=== PATIENT | female | born 1970 | race Caucasian/White ===

== ENCOUNTER 2016-11-23 11:14 | Emergency (ER) | payer MEDICAID, OTHER ==
[~2016-11-23] VITALS: Wt 62.0 kg
[~2016-11-23 11:14] MED LIST: DIVA500T15 PO; DIVA500T7 PO; ZIPR60CA6 PO
[2016-11-23] MEDS ORDERED: traMADol 50 MG TAB PO ONE (12:30)
--- NOTE | 2016-11-23 12:36 | ERD ---
ER Documentation Chief Complaint Date/Time DATE: 11/23/16 TIME: 12:32 Chief Complaint left lower back pain radiating to left leg.no trauma. ambulatory HPI This 46-year-old female who presents to the emergency department today complaining of left-sided back and hip pain that radiates down into front and back of her left leg. Patient denies any trauma. She states that she has tried Tylenol and ibuprofen with no improvement in symptoms. Patient states that she works at [employer]. Denies any dysuria. Denies any fevers or chills, loss of bowel or bladder control. ROS All systems reviewed and are negative except as per history of present illness. Medications Home Meds Active Scripts Prednisone* (Prednisone*) 20 Mg Tab, 40 MG PO DAILY for 4 Days, TAB Prov:SHAKIR ROUSE PA-C 11/23/16 Naproxen* (Naprosyn*) 500 Mg Tablet, 500 MG PO BID Y for PAIN AND/OR INFLAMMATION, #30 TAB Prov:SHAKIR ROUSE PA-C 11/23/16 Tramadol HCl (Tramadol HCl) 50 Mg Tablet, 50 MG PO Q4 Y for PAIN, #20 TAB Prov:SHAKIR ROUSE PA-C 11/23/16 Reported Medications Ziprasidone* (Geodon*) 60 Mg Capsule, 60 MG PO PM, CAP 09/10/14 Divalproex Sodium* (Depakote ER*) 500 Mg Tabsr, 500 MG PO BID, TAB.SA 09/10/14 Divalproex Sodium* (Divalproex ER*) 500 Mg Tab.er.24h, 500 MG PO DAILY, TAB.SA 09/10/14 Allergies Allergies: Coded Allergies: morphine (Unverified Allergy, Unknown, VOMITTING, 09/10/14) PMhx/Soc Medical and Surgical Hx: pt denies Medical Hx, pt denies Surgical Hx History of Surgery: No Anesthesia Reaction: No Hx Neurological Disorder: No Hx Respiratory Disorders: No Hx Cardiac Disorders: No Hx Psychiatric Problems: No Hx Miscellaneous Medical Probl: No Hx Alcohol Use: No Hx Substance Use: No Hx Tobacco Use: No Smoking Status: Never smoker Physical Exam Vitals Vital Signs Date Time Temp Pulse Resp B/P Pulse Ox O2 Delivery O2 Flow Rate FiO2 11/23/16 11:32 98.7 77 18 160/85 98 Physical Exam Const: No acute distress, pleasant Head: Atraumatic Eyes: Normal Conjunctiva ENT: Normal External Ears, Nose and Mouth. Neck: Full range of motion..~ No meningismus. Resp: Clear to auscultation bilaterally Cardio: Regular rate and rhythm, no murmurs Abd: Soft, non tender, non distended. Normal bowel sounds Skin: No petechiae or rashes Back: No midline tenderness. Left-sided paraspinal tenderness. Full active range of motion. Pain with positive straight leg raise and left leg. Pulses 2+. Distal neurovascularly intact. Ext: No cyanosis, or edema Neur: Awake and alert Psych: Normal Mood and Affect Results 24 hrs Current Medications Medications (Trade) Dose Ordered Sig/Raul Route PRN Reason Start Time Stop Time Status Last Admin Dose Admin Tramadol HCl (Ultram) 50 mg ONCE ONCE PO 11/23/16 12:30 11/23/16 12:31 11/23/16 12:19 Patient: CELINE SHAIKH : 1970 Age: 46 Sex: F MR #: [id number] DOS: 11/23/16 0000 Ordering MD: SHAKIR ROUSE PA-C Location: [facility] Room/Bed: PROCEDURE: XR left hip. CLINICAL INDICATION: Hip pain TECHNIQUE: Two views available for review. COMPARISON: None available FINDINGS: The osseous structures are normal in mineralization, architecture and alignment. No fractures are identified. No osseous lesions are identified. The joints are unremarkable. The soft tissues are unremarkable. IMPRESSION: Unremarkable examination RPTAT: HGDB .Zack Oneal MD, MD Date Time Electronically viewed and signed by .Zack Oneal MD, on 11/23/2016 13:37 .B/ CC: SHAKIR ROUSE PA-C DIAGNOSTIC IMAGING REPORT Patient: CELINE SHAIKH : 1970 Age: 46 Sex: F [id number] DOS: 11/23/16 0000 Ordering MD: SHAKIR ROUSE PA-C Location: [facility] Room/Bed: PROCEDURE: XR Lumbar Spine. CLINICAL INDICATION: Low back pain. TECHNIQUE: 3 views of the lumbar spine are available for review COMPARISON: None available FINDINGS: Cholecystectomy. Single surgical clip adjacent to the left L2 transverse process. There is mild lumbar spondylosis. The vertebral bodies are otherwise normal in mineralization, architecture and alignment. No fractures or osseous lesions are identified. There is no evidence of subluxation. The disk spaces are unremarkable. The facet joints are unremarkable. Soft tissues are unremarkable. IMPRESSION: Mild lumbar spondylosis RPTAT: HGDB .Zack Oneal MD, MD Date Time Electronically viewed and signed by .Zack Oneal MD, MD on 11/23/2016 13:38 .B/ CC: SHAKIR ROUSE PA-C Procedures/MDM This is a 46-year-old female who presents to emergency department today complaining of left-sided back, hip pain radiates down into her leg. Patient did not have any trauma however she has had symptoms for the past 2 weeks and has not had nearly resolved and symptoms with [id number] medications of ibuprofen and Tylenol. Given this I did obtain imaging Per the radiology report images of the lumbar spine and left hip. Images of the left hip are unremarkable. There is no acute fracture dislocation. Joint spaces unremarkable. Soft tissue is unremarkable. Images of the lumbar spine show mild lumbar spondylosis. Vertebral bodies are otherwise normal sensation. There is no evidence of subluxation. Disc spaces are unremarkable. Facet joints are unremarkable. Soft tissue is unremarkable. Patient's symptoms at this time is consistent with sciatica. She is afebrile and otherwise well appearing. She has no loss of bowel or by control of low suspicion for abscess or cauda equina. Patient declined a Toradol injection here in the emergency department. She was given tramadol instead pain improved. Patient will be given a prescription for tramadol, Naprosyn short course of prednisone for home At this time the patient is stable for discharge and outpatient management. Patient should follow up with their PCP in the next 1-2 days. She was given a list of community resources. They may return to the emergency department sooner for any persistent or worsening of symptoms. Patient understood and agreed with the plan. Departure Diagnosis: Primary Impression: Sciatica Laterality: left Qualified Code: M54.32 - Sciatica of left side Condition: Fair SHAKIR ROUSE PA-C Nov 23, 2016 12:36
--- NOTE | 2016-11-23 13:37 | RADRPT ---
PROCEDURE: XR left hip. CLINICAL INDICATION: Hip pain TECHNIQUE: Two views available for review. COMPARISON: None available FINDINGS: The osseous structures are normal in mineralization, architecture and alignment. No fractures are i dentified. No osseous lesions are identified. The joints are unremarkable. The soft tissues are u nremarkable. IMPRESSION: Unremarkable examination RPTAT: HGDB .Zack Oneal MD, MD Date Time Electronically viewed and signed by .Zack Oneal MD, on 11/23/2016 13:37 .B/
--- NOTE | 2016-11-23 13:38 | RADRPT ---
PROCEDURE: XR Lumbar Spine. CLINICAL INDICATION: Low back pain. TECHNIQUE: 3 views of the lumbar spine are available for review COMPARISON: None available FINDINGS: Cholecystectomy. Single surgical clip adjacent to the left L2 transverse process. There is mild lumbar spondylosis. The vertebral bodies are otherwise normal in mineralization, archi tecture and alignment. No fractures or osseous lesions are identified. There is no evidence of sub luxation. The disk spaces are unremarkable. The facet joints are unremarkable. Soft tissues are unr emarkable. IMPRESSION: Mild lumbar spondylosis RPTAT: HGDB .Zack Oneal MD, Date Time Electronically viewed and signed by .Zack Oneal MD, on 11/23/2016 13:38 .B/
[2016-11-23] MEDS ORDERED: NAPR-260 PO (13:45)
[2016-11-23] MEDS ORDERED: TRAM50TA2 PO (13:45)
[2016-11-23] MEDS ORDERED: PRED20TA PO (13:46)
== END 2016-11-23 13:51 | disposition home or self-care (01) ==
LOC: FTE 11:14
DX: M54.42 Lumbago with sciatica, left side (principal)
CPT/HCPCS: 72100; 73510; Z7502; Z7610

== ENCOUNTER 2016-12-27 17:58 | Emergency (ER) | payer SELFPAY ==
[~2016-12-27] VITALS: Wt 66.5 kg
[~2016-12-27 17:58] MED LIST changes: +NAPR-260 PO; +PRED20TA PO; +TRAM50TA2 PO
== END 2016-12-28 | disposition left against medical advice (07) ==
LOC: E/R 17:58
DX: Z53.21 Procedure and treatment not carried out due to patient leaving prior to being seen by health care provider (principal)

== ENCOUNTER 2017-02-16 04:26 | Emergency (ER) | payer OTHER ==
[~2017-02-16] VITALS: Wt 69.5 kg
--- NOTE | 2017-02-16 04:49 | ERD ---
ER Documentation Chief Complaint Date/Time DATE: 02/16/17 TIME: 04:47 Chief Complaint back pain x2 years HPI Patient is a 46-year-old female who presents with gradual onset, constant, moderate, dull diffuse chest and back pain for 2 years. Patient denies shortness of breath, dysuria, fever, cough. Denies pleuritic pain. Patient states that she has been taking ibuprofen 800 mg without relief. Patient has not seen a PMD and states she does not have one. ROS All systems reviewed and are negative except as per history of present illness. Medications Home Meds Active Scripts Cephalexin* (Keflex*) 500 Mg Capsule, 500 MG PO QID for 5 Days, CAP Prov:KENNY ROBERSON MD 02/16/17 Cyclobenzaprine Hcl* (Cyclobenzaprine Hcl*) 10 Mg Tablet, 10 MG PO TID Y for PAIN, #21 TAB Prov:KENNY ROBERSON MD 02/16/17 Prednisone* (Prednisone*) 20 Mg Tab, 40 MG PO DAILY for 4 Days, TAB Prov:SHAKIR ROUSE PA-C 11/23/16 Naproxen* (Naprosyn*) 500 Mg Tablet, 500 MG PO BID Y for PAIN AND/OR INFLAMMATION, #30 TAB Prov:SHAKIR ROUSE PA-C 11/23/16 Tramadol HCl (Tramadol HCl) 50 Mg Tablet, 50 MG PO Q4 Y for PAIN, #20 TAB Prov:SHAKIR ROUSE PA-C 11/23/16 Reported Medications Ziprasidone* (Geodon*) 60 Mg Capsule, 60 MG PO PM, CAP 09/10/14 Divalproex Sodium* (Depakote ER*) 500 Mg Tabsr, 500 MG PO BID, TAB.SA 09/10/14 Divalproex Sodium* (Divalproex ER*) 500 Mg Tab.er.24h, 500 MG PO DAILY, TAB.SA 09/10/14 Allergies Allergies: Coded Allergies: morphine (Unverified Allergy, Unknown, VOMITTING, 09/10/14) PMhx/Soc Past medical history: Bipolar disorder Past surgical history: Cholecystectomy Social history: Denies tobacco or alcohol History of Surgery: Yes (CHOLECYSTECTOMY) Anesthesia Reaction: No Hx Neurological Disorder: No Hx Respiratory Disorders: No Hx Cardiac Disorders: No Hx Psychiatric Problems: No Hx Miscellaneous Medical Probl: Yes (BIPOLAR) Hx Alcohol Use: No Hx Substance Use: No Hx Tobacco Use: No Smoking Status: Never smoker FmHx Family History: No coronary disease, No diabetes Physical Exam Vitals Vital Signs Date Time Temp Pulse Resp B/P Pulse Ox O2 Delivery O2 Flow Rate FiO2 02/16/17 04:35 97.9 79 20 126/57 97 Physical Exam Const: Alert, no acute distress Head: Atraumatic Eyes: Normal Conjunctiva, no pallor, no icterus ENT: Normal External Ears, Nose and Mouth. Moist mucous membranes Neck: Full range of motion. No JVD. No meningismus. Resp: Clear to auscultation bilaterally, no wheezes, no rales Cardio: Regular rate and rhythm, no murmurs. Bilateral parasternal tenderness. Abd: Soft, non tender, non distended. Normal bowel sounds Skin: No petechiae or rashes Back: Thoracic and lumbar paraspinal tenderness with muscle spasm. No midline tenderness. Equivocal CVA tenderness. Ext: No cyanosis, or edema Neur: Awake and alert, cranial nerves II through XII intact bilaterally, moves and feels 4 extremities appropriately. Psych: Normal Mood and Affect Result Diagram: 02/16/17 0450 02/16/17 0450 Results 24 hrs Laboratory Tests Test 02/16/17 04:50 White Blood Count 10.910^3/ul Red Blood Count 3.9710^6/ul Hemoglobin 11.5g/dl Hematocrit 35.4% Mean Corpuscular Volume 89.2fl Mean Corpuscular Hemoglobin 29.0pg Mean Corpuscular Hemoglobin Concent 32.5g/dl Red Cell Distribution Width 14.6% Platelet Count 68760^3/UL Mean Platelet Volume 9.7fl Neutrophils % 63.0% Lymphocytes % 28.4% Monocytes % 7.2% Eosinophils % 0.6% Basophils % 0.5% Nucleated Red Blood Cells % 0.0/100WBC Neutrophils # 6.910^3/ul Lymphocytes # 3.110^3/ul Monocytes # 0.810^3/ul Eosinophils # 0.110^3/ul Basophils # 0.110^3/ul Nucleated Red Blood Cells # 0.010^3/ul Urine Color LT. YELLOW Urine Clarity CLEAR Urine pH 6.0 Urine Specific [place] 1.020 Urine Ketones NEGATIVE Urine Nitrite NEGATIVE Urine Bilirubin NEGATIVE Urine Urobilinogen 0.2 E.U./dL Urine Leukocyte Esterase 2+ Urine Microscopic RBC NONE SEEN/HPF Urine Microscopic WBC 5-10/HPF Urine Squamous Epithelial Cells MODERATE Urine Bacteria FEW Urine Mucus FEW Urine Hemoglobin NEGATIVE Urine Glucose NEGATIVE% Urine Total Protein NEGATIVE Sodium Level 141mmol/L Potassium Level 4.0mmol/L Chloride Level 104mmol/L Carbon Dioxide Level 24mmol/L Anion Gap 17 Blood Urea Nitrogen 17mg/dl Creatinine 0.56mg/dl Glucose Level 78mg/dl Calcium Level 9.6mg/dl Troponin I < 0.012ng/ml Serum HCG, Qualitative NEGATIVE Current Medications Medications (Trade) Dose Ordered Sig/Raul Route PRN Reason Start Time Stop Time Status Last Admin Dose Admin Acetaminophen (Tylenol Tab) 650 mg ONCE ONCE PO 02/16/17 06:00 02/16/17 06:01 Procedures/MDM EKG read by me: Time 430, rate 82 Rhythm: Normal sinus [place]: Normal Intervals: Normal ST-T waves: no ischemic changes Ectopy: No Q-waves: No Impression: No evidence of ischemia or arrhythmia, possible left atrial enlargement. MDM: Patient is a 46-year-old female who presents with chronic back and chest pain. She states she has had this pain for 2 years. She is taking ibuprofen which is not helping. She has a questionable UTI on UA, otherwise unremarkable labs, EKG, and chest x-ray. I advised her the need to follow-up with PMD for further management of chronic pain. There are no features that are concerning for coronary ischemia or PE. I will give the patient a course of antibiotics for possible UTI, and culture was sent. I will also give her a trial of Flexeril due to muscle spasm and tenderness that was apparent on exam. Departure Diagnosis: Primary Impression: Chest wall pain Additional Impressions: Back pain Back pain location: thoracic back pain Chronicity: chronic Back pain laterality: bilateral Qualified Code: M54.6 - Chronic bilateral thoracic back pain UTI (urinary tract infection) Indwelling urinary catheter type: unspecified Encounter type: initial encounter Condition: KENNY Goldberg MD February 16, 2017 04:49
[2017-02-16 05:22] LABS: ADD SCAN DIFF NO
[2017-02-16] MEDS ORDERED: CYCL-319 PO (05:23)
[2017-02-16 05:24] LABS: ADD UMIC YES; URINE BILIRUBIN (Dip) NEGATIVE (NEGATIVE); URINE BLOOD (Dip) NEGATIVE (NEGATIVE); URINE COLOR LT. YELLOW (YELLOW); URINE GLUCOSE (Dip) NEGATIVE (NEGATIVE); URINE KETONES (Dip) NEGATIVE (NEGATIVE); URINE LEUKOCYTE ESTERASE (Dip) 2+ (NEGATIVE); URINE NITRITE (Dip) NEGATIVE (NEGATIVE); URINE TOTAL PROTEIN (Dip) NEGATIVE (NEGATIVE); URINE UROBILINOGEN (Dip) 0.2 E.U./dL (0.1-1.0)
[2017-02-16 05:25] LABS: BASOPHIL # 0.1 10^3/ul (0.0-0.1); BASOPHILS % 0.5 % (0.0-2.0); EOSINOPHILS # 0.1 10^3/ul (0.0-0.5); EOSINOPHILS % 0.6 % (0.0-7.0); HEMATOCRIT 35.4 % (37.0-47.0); HEMOGLOBIN 11.5 g/dl (12.0-16.0); LYMPHOCYTES # 3.1 10^3/ul (0.8-2.9); LYMPHOCYTES % 28.4 % (15.0-51.0); MEAN CORPUSCULAR HGB CONC 32.5 g/dl (32.0-37.0); MEAN CORPUSCULAR VOLUME 89.2 fl (82.0-101.0); MEAN PLATELET VOLUME 9.7 fl (7.4-10.4); MONOCYTE # 0.8 10^3/ul (0.3-0.9); MONOCYTES % 7.2 % (0.0-11.0); NEUTROPHIL # 6.9 10^3/ul (1.6-7.5); PLATELET COUNT 362 10^3/UL (140-415); RED BLOOD COUNT 3.97 10^6/ul (4.20-5.40); RED CELL DISTRIBUTION WIDTH 14.6 % (11.5-14.5); WHITE BLOOD COUNT 10.9 10^3/ul (4.8-10.8)
[2017-02-16 05:37] LABS: CHLORIDE 104 mmol/L (97-110); SODIUM 141 mmol/L (135-144)
[2017-02-16 05:38] LABS: BACTERIA,URINE FEW; MUCUS,URINE FEW; SQUAMOUS EPITHELIAL CELL,UR MODERATE; URINE RBCS NONE SEEN /HPF (0)
[2017-02-16 05:39] LABS: CREATININE 0.56 mg/dl (0.44-1.00)
--- NOTE | 2017-02-16 05:39 | RADRPT ---
PROCEDURE: CHEST - 1 VIEW CLINICAL INDICATION: 46-year-old female with chest pain. TECHNIQUE: A single frontal AP portable view of the chest was performed. The images were reviewed on a PACS workstation. COMPARISON: Chest x-ray September 10, 2014. FINDINGS: The cardiomediastinal silhouette has a normal appearance. There is no evidence for an infiltrate. There is no evidence for congestive heart failure. There is no evidence for pneumothorax. Surgical c lips are seen within the right upper quadrant from prior cholecystectomy. The osseous structures are intact. IMPRESSION: 1. No evidence for active cardiopulmonary disease. 2. Status post cholecystectomy. .Diony Mejia MD, MD Date Time Electronically viewed and signed by .Diony Mejia MD, on 02/16/2017 05:39 .M/
[2017-02-16 05:40] LABS: ANION GAP 17 (8-16); BLOOD UREA NITROGEN 17 mg/dl (7-20); CARBON DIOXIDE 24 mmol/L (21-31); GLUCOSE 78 mg/dl (70-220)
[2017-02-16 05:41] LABS: CALCIUM 9.6 mg/dl (8.4-10.2)
[2017-02-16] MEDS ORDERED: CEPH-443 PO (05:45)
[2017-02-16 05:56] LABS: TROPONIN-I < 0.012 ng/ml (0.00-0.12)
[2017-02-16 05:59] VITALS: BP 122/63; PULSE 82; RESP 20; TEMP 98
[2017-02-16] MEDS ORDERED: ACETAMINOPHEN 325 MG TAB PO ONE (06:00)
== END 2017-02-16 05:59 | disposition home or self-care (01) ==
LOC: E/R 04:26
DX: R07.89 Other chest pain (principal); M54.6 Pain in thoracic spine; N39.0 Urinary tract infection, site not specified
CPT/HCPCS: 36415; 71010; 80048; 81001; 84484; 84703; 85025; 87086; 93005; Z7502; Z7610; 81003

== ENCOUNTER 2017-03-28 16:28 | Emergency (ER) | payer OTHER ==
[~2017-03-28] VITALS: Ht 157.5 cm; Wt 68.0 kg
[~2017-03-28 16:28] MED LIST changes: +CEPH-443 PO; +CYCL-319 PO
[2017-03-28 16:36] VITALS: Ht 157.5 cm; Wt 68.0 kg
[2017-03-28] MEDS ORDERED: HC30CR25 TOP (16:41)
[2017-03-28] MEDS ORDERED: CETI10CA PO (16:41)
[2017-03-28] MEDS ORDERED: PRED20TA PO (16:41)
--- NOTE | 2017-03-28 17:10 | ERD ---
ER Documentation Chief Complaint Date/Time DATE: 03/28/17 TIME: 17:08 Chief Complaint generalized itchyness x 1 week HPI Patient is a 46-year-old female who presents with bilateral arm and bilateral leg itchiness 1 week. She states that she was at [employer] and possibly got exposed to a chemical there. She also states that she was at the park last week and possibly got exposed to something at the park. She states that she has a rash that is itchy and slightly burning. Denies fever or chills. Denies vomiting or diarrhea or abdominal pain. Denies chest pain or cough or shortness of breath. Denies tongue or lip swelling or difficulty breathing or speaking. She has used calamine lotion and Benadryl which is helped minimally with her symptoms. Denies recent travel. Denies change in hygiene products. No other complaints. ROS All systems reviewed and are negative except as per history of present illness. Medications Home Meds Active Scripts Hydrocortisone* Topical (Hydrocortisone* Topical) 2.5%-28.3 Gm Cream..g., 1 APPLIC TOP BID, #2 TUB Prov:ARLEN PETERS PA-C 03/28/17 Cetirizine Hcl* (Zyrtec*) 10 Mg Capsule, 10 MG PO DAILY, #10 TAB.CHEW Prov:ARLEN PETERS PA-C 03/28/17 Prednisone* (Prednisone*) 20 Mg Tab, 40 MG PO DAILY for 4 Days, TAB Prov:ARLEN PETERS PA-C 03/28/17 Cephalexin* (Keflex*) 500 Mg Capsule, 500 MG PO QID for 5 Days, CAP Prov:KENNY ROBERSON MD 02/16/17 Cyclobenzaprine Hcl* (Cyclobenzaprine Hcl*) 10 Mg Tablet, 10 MG PO TID Y for PAIN, #21 TAB Prov:KENNY ROBERSON MD 02/16/17 Prednisone* (Prednisone*) 20 Mg Tab, 40 MG PO DAILY for 4 Days, TAB Prov:SHAKIR ROUSE PA-C 11/23/16 Naproxen* (Naprosyn*) 500 Mg Tablet, 500 MG PO BID Y for PAIN AND/OR INFLAMMATION, #30 TAB Prov:SHAKIR ROUSE PA-C 11/23/16 Tramadol HCl (Tramadol HCl) 50 Mg Tablet, 50 MG PO Q4 Y for PAIN, #20 TAB Prov:SHAKIR ROUSEGreyson PRECIADO 11/23/16 Reported Medications Ziprasidone* (Geodon*) 60 Mg Capsule, 60 MG PO PM, CAP 09/10/14 Divalproex Sodium* (Depakote ER*) 500 Mg Tabsr, 500 MG PO BID, TAB.SA 09/10/14 Divalproex Sodium* (Divalproex ER*) 500 Mg Tab.er.24h, 500 MG PO DAILY, TAB.SA 09/10/14 Allergies Allergies: Coded Allergies: morphine (Unverified Allergy, Unknown, VOMITTING, 09/10/14) PMhx/Soc History of Surgery: Yes (CHOLECYSTECTOMY) Anesthesia Reaction: No Hx Neurological Disorder: No Hx Respiratory Disorders: No Hx Cardiac Disorders: No Hx Psychiatric Problems: No Hx Miscellaneous Medical Probl: Yes (BIPOLAR) Hx Alcohol Use: No Hx Substance Use: No Hx Tobacco Use: No FmHx Family History: No coronary disease, No diabetes, No other Physical Exam Vitals Vital Signs Date Time Temp Pulse Resp B/P Pulse Ox O2 Delivery O2 Flow Rate FiO2 03/28/17 16:36 98.2 92 18 109/52 97 Physical Exam GENERAL: Well-developed, well-nourished female. Appears in no acute distress. HEAD: Normocephalic, atraumatic. EYES: Pupils are equally reactive bilaterally. EOMs grossly intact. No conjunctival erythema. ENT: Moist mucous membranes. No uvula deviation. No kissing tonsils. No exudates. NECK: Supple. No lymphadenopathy or thyromegaly. No meningismus. negative kernig. negative brudinski. LUNG: Clear to auscultation bilaterally. No rhonchi, wheezing, rales or coarse breath sounds. HEART: Regular rate and rhythm. No murmurs, rubs or gallops. ABDOMEN: No scars, ecchymosis or rashes noted. Soft, nontender, and nondistended. Positive bowel sounds in all four quadrants. No rebound tenderness , no guarding. (-) McBurneys point tenderness. No CVA tenderness. BACK: No midline tenderness. Extremities: Equal pulses bilaterally. No peripheral clubbing, cyanosis or edema. No unilateral leg swelling. NEUROLOGIC: Alert and oriented. Moving all four extremities. 5/5 strength in all extremities. Normal speech. Steady gait. SKIN: Normal color. Warm and dry. Bilateral arms and bilateral legs are erythematous with multiple excoriations. No signs of infection. No wheals.. Capillary refill < 2 seconds Procedures/MDM ER COURSE: I kept the patient and/or family informed of laboratory and diagnostic imaging results throughout the emergency room course. MEDICAL DECISION MAKING: This is a 46-year-old female who presents with rash 1 week. Vital signs were reviewed. Patient is afebrile. Patient is not hypoxic. Patient is not toxic or ill-appearing. Patient has rash of unknown etiology likely allergic. Low suspicion for necrotizing fasciitis, SJS, toxic epidermal necrolysis, Kawasaki, erythema multiforme, gangrene, scarlet fever, meningococcemia, sepsis, anaphylaxis, sepsis, deep space infection, or foreign body. Low suspicion for respiratory distress. Low suspicion for angioedema. No tongue or lip swelling. DISCHARGE: At this time, patient is stable for discharge and outpatient management with no new complaints during the ER course. Patient was sent home with Zyrtec, prednisone and hydrocortisone cream. Patient will be discharged home with instructions to recheck for new or worsening symptoms such as fever, nausea, weakness, LOC and to follow up with primary care in the next 1-2 days. Patient was advised to return to the ER for any new or worsening symptoms. Plan was discussed and patient and/or family understands and agrees. Home instructions were given. Departure Diagnosis: Primary Impression: Rash Condition: Stable Patient Instructions: Self-Care for Skin Rashes Additional Instructions: Llame al doctor MAANA y mary nida VALERIA PARA DENTRO DE 1-2 LAURENT.Dgale a la secretaria que nosotros le instruimos hacer esta valeria.Avise o llame si denny condicin se empeora antes de la valeria. Regresa aqui si peor o no mejor. ARLEN PETERS PA-C Mar 28, 2017 17:10
== END 2017-03-28 16:41 | disposition home or self-care (01) ==
LOC: E/R 16:28
DX: R21 Rash and other nonspecific skin eruption (principal)
CPT/HCPCS: 99284

== ENCOUNTER 2017-04-14 19:08 | Emergency (ER) | payer OTHER ==
[~2017-04-14] VITALS: Ht 162.6 cm; Wt 68.5 kg
[~2017-04-14 19:08] MED LIST changes: +CETI10CA PO; +HC30CR25 TOP
[2017-04-14 19:10] VITALS: Ht 162.6 cm; Wt 68.5 kg
[2017-04-14 19:43] LABS: URINE BLOOD (Dip) POC 3+ (NEGATIVE)
--- NOTE | 2017-04-14 19:52 | ERD ---
ER Documentation Chief Complaint Date/Time DATE: 04/14/17 TIME: 19:49 Chief Complaint pelvic pain with urinary retention HPI 46-year-old female presents in emergency department for complaint of urinary urgency and frequency dribbling urine and pelvic suprapubic pain for the last 2 days. Patient denies any blood in the urine. Patient denies any flank pain. Patient denies any nausea or vomiting. Patient is complaining of dysuria, burning pain 4/10 scale, accompanied other symptoms. Patient denies any vaginal itching or vaginal discharge. ROS All systems reviewed and are negative except as per history of present illness. Medications Home Meds Active Scripts Hydrocortisone* Topical (Hydrocortisone* Topical) 2.5%-28.3 Gm Cream..g., 1 APPLIC TOP BID, #2 TUB Prov:ARLEN PETERS PA-C 03/28/17 Cetirizine Hcl* (Zyrtec*) 10 Mg Capsule, 10 MG PO DAILY, #10 TAB.CHEW Prov:ARLEN PETERS PA-C 03/28/17 Prednisone* (Prednisone*) 20 Mg Tab, 40 MG PO DAILY for 4 Days, TAB Prov:ARLEN PETERS PA-C 03/28/17 Cephalexin* (Keflex*) 500 Mg Capsule, 500 MG PO QID for 5 Days, CAP Prov:KENNY ROBERSON MD 02/16/17 Cyclobenzaprine Hcl* (Cyclobenzaprine Hcl*) 10 Mg Tablet, 10 MG PO TID Y for PAIN, #21 TAB Prov:KENNY ROBERSON MD 02/16/17 Prednisone* (Prednisone*) 20 Mg Tab, 40 MG PO DAILY for 4 Days, TAB Prov:SHAKIR ROUSE PA-C 11/23/16 Naproxen* (Naprosyn*) 500 Mg Tablet, 500 MG PO BID Y for PAIN AND/OR INFLAMMATION, #30 TAB Prov:SHAKIR ROUSE PA-C 11/23/16 Tramadol HCl (Tramadol HCl) 50 Mg Tablet, 50 MG PO Q4 Y for PAIN, #20 TAB Prov:SHAKIR ROUSE PA-C 11/23/16 Reported Medications Ziprasidone* (Geodon*) 60 Mg Capsule, 60 MG PO PM, CAP 09/10/14 Divalproex Sodium* (Depakote ER*) 500 Mg Tabsr, 500 MG PO BID, TAB.SA 09/10/14 Divalproex Sodium* (Divalproex ER*) 500 Mg Tab.er.24h, 500 MG PO DAILY, TAB.SA 09/10/14 Allergies Allergies: Coded Allergies: morphine (Unverified Allergy, Unknown, VOMITTING, 09/10/14) PMhx/Soc History of Surgery: Yes (CHOLECYSTECTOMY) Anesthesia Reaction: No Hx Neurological Disorder: No Hx Respiratory Disorders: No Hx Cardiac Disorders: No Hx Psychiatric Problems: No Hx Miscellaneous Medical Probl: Yes (BIPOLAR) Hx Alcohol Use: No Hx Substance Use: No Hx Tobacco Use: No Smoking Status: Never smoker FmHx Family History: No coronary disease, No diabetes, No other Physical Exam Vitals Vital Signs Date Time Temp Pulse Resp B/P Pulse Ox O2 Delivery O2 Flow Rate FiO2 04/14/17 19:10 98.1 80 20 140/63 100 Physical Exam GENERAL: The patient is well developed and appropriate for usual state of health, in no apparent distress. CHEST: Clear to auscultation bilaterally. There are no rales, wheezes or rhonchi. HEART: Regular rate and rhythm. No murmurs, clicks, rubs or gallops. No S3 or S4. ABDOMEN: Soft, nontender and nondistended. Good bowel sounds. No rebound or guarding. No gross peritonitis. No gross organomegaly or masses. No Berrios sign or McBurney point tenderness. BACK: No midline or flank tenderness. EXTREMITIES: Equal pulses bilaterally. There is no peripheral clubbing, cyanosis or edema. No focal swelling or erythema. Full range of motion. Grossly neurovascularly intact. NEURO: Alert and oriented. Cranial nerves 2-12 intact. Motor strength in all 4 extremities with 5/5 strength. Sensation grossly intact. Normal speech and gait. SKIN: There is no apparent rash or petechia. The skin is warm and dry. HEMATOLOGIC AND LYMPHATIC: There is no evidence of excessive bruising or lymphedema. No gross cervical, axillary, or inguinal lymphadenopathy. Results 24 hrs Laboratory Tests Test 04/14/17 19:48 Bedside Urine pH (LAB) 5.0 Bedside Urine Protein (LAB) 2+ Bedside Urine Glucose (UA) Negative Bedside Urine Ketones (LAB) Negative Bedside Urine Blood 3+ Bedside Urine Nitrite (LAB) Negative Bedside Urine Leukocyte Esterase (L Trace Procedures/MDM Medical Decision Making: Patients symptoms are consistent with urinary tract infection. There is low suspicion for pyelonephritis. There is low suspicion for abdominal emergencies at this time. Patients abdominal exam is normal. There is low suspicion for sepsis. Patient appears well and is hemodynamically stable. Disposition: Home. Stable Prescription ciprofloxacin, Pyridium Instructions: Patient is advised to take medications as prescribed. Patient is advised to rest, increase fluid intake and do good perineal hygiene. Patient is advised that if symptoms are worse, severe abdominal pain, uncontrolled vomiting , high fever, severe flank pain, worst signs and symptoms, to return to the emergency department immediately. Otherwise, patient can follow up with primary care doctor in 5-7 days. Departure Diagnosis: Primary Impression: UTI (urinary tract infection) Urinary tract infection type: acute cystitis Hematuria presence: without hematuria Qualified Code: N30.00 - Acute cystitis without hematuria Condition: Stable Patient Instructions: Understanding Urinary Tract Infections (UTIs) Additional Instructions: Patient is advised to take medications as prescribed. Patient is advised to rest , increase fluid intake and do good perineal hygiene. Patient is advised that if symptoms are worse, severe abdominal pain, uncontrolled vomiting, high fever , severe flank pain, worst signs and symptoms, to return to the emergency department immediately. Otherwise, patient can follow up with primary care doctor in 5-7 days. ROLF DIETRICH NP Apr 14, 2017 19:52
[2017-04-14] MEDS ORDERED: PHEN-538 PO (19:57)
[2017-04-14] MEDS ORDERED: CIPR500T4 PO (19:57)
== END 2017-04-14 20:06 | disposition home or self-care (01) ==
LOC: FTE 19:08
DX: N30.00 Acute cystitis without hematuria (principal)
CPT/HCPCS: 81003; Z7502; 99283

== ENCOUNTER 2017-04-18 17:31 | Emergency (ER) | payer OTHER ==
[~2017-04-18] VITALS: Ht 157.5 cm; Wt 68.0 kg
[~2017-04-18 17:31] MED LIST changes: +CIPR500T4 PO; +PHEN-538 PO
[2017-04-18 17:59] VITALS: Ht 157.5 cm; Wt 68.0 kg
[2017-04-18] MEDS ORDERED: PRED20TA PO (19:06)
[2017-04-18] MEDS ORDERED: FEXO180T61 PO (19:06)
--- NOTE | 2017-04-18 19:10 | ERD ---
ER Documentation Chief Complaint Date/Time DATE: 04/18/17 TIME: 19:08 Chief Complaint rash on bilat legs x 3 weeks HPI This 46 year feel presents with itching on her bilateral thighs last 3 weeks. She seen her primary strep hydrocortisone. 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 She maybe has some new laundry detergent but no new foods. She did take some antibiotics for UTI but back was after the rash started .patient denies any shortness breath, fevers, abdominal pain, vomiting, additional symptoms. She has no rash only itching. ROS All systems reviewed and are negative except as per history of present illness. Medications Home Meds Active Scripts Prednisone* (Prednisone*) 20 Mg Tab, 40 MG PO DAILY for 5 Days, TAB Prov:ANH ASHLEY MD 04/18/17 Fexofenadine Hcl* (Arlene*) 180 Mg Tablet, 180 MG PO DAILY, #15 TAB Prov:ANH ASHLEY MD 04/18/17 Phenazopyridine Hcl* (Pyridium*) 200 Mg Tab, 200 MG PO TID Y for URINARY PAIN, # 6 TAB Prov:ROLF DIETRICH NP 04/14/17 Ciprofloxacin Hcl* (Ciprofloxacin Hcl*) 500 Mg Tablet, 500 MG PO BID for 10 Days , TAB Prov:ROLF DIETRICH NP 04/14/17 Hydrocortisone* Topical (Hydrocortisone* Topical) 2.5%-28.3 Gm Cream..g., 1 APPLIC TOP BID, #2 TUB Prov:ARLEN PETERS PA-C 03/28/17 Cetirizine Hcl* (Zyrtec*) 10 Mg Capsule, 10 MG PO DAILY, #10 TAB.CHEW Prov:ARLEN PETERS PA-C 03/28/17 Prednisone* (Prednisone*) 20 Mg Tab, 40 MG PO DAILY for 4 Days, TAB Prov:ARLEN PETERS PA-C 03/28/17 Cephalexin* (Keflex*) 500 Mg Capsule, 500 MG PO QID for 5 Days, CAP Prov:KENNY ROBERSON MD 02/16/17 Cyclobenzaprine Hcl* (Cyclobenzaprine Hcl*) 10 Mg Tablet, 10 MG PO TID Y for PAIN, #21 TAB Prov:KENNY ROBERSON MD 02/16/17 Prednisone* (Prednisone*) 20 Mg Tab, 40 MG PO DAILY for 4 Days, TAB Prov:SHAKIR ROUSE PA-C 11/23/16 Naproxen* (Naprosyn*) 500 Mg Tablet, 500 MG PO BID Y for PAIN AND/OR INFLAMMATION, #30 TAB Prov:SHAKIR ROUSE PA-C 11/23/16 Tramadol HCl (Tramadol HCl) 50 Mg Tablet, 50 MG PO Q4 Y for PAIN, #20 TAB Prov:SHAKIR ROUSE PA-C 11/23/16 Reported Medications Ziprasidone* (Geodon*) 60 Mg Capsule, 60 MG PO PM, CAP 09/10/14 Divalproex Sodium* (Depakote ER*) 500 Mg Tabsr, 500 MG PO BID, TAB.SA 09/10/14 Divalproex Sodium* (Divalproex ER*) 500 Mg Tab.er.24h, 500 MG PO DAILY, TAB.SA 09/10/14 Allergies Allergies: Coded Allergies: morphine (Unverified Allergy, Unknown, VOMITTING, 04/18/17) PMhx/Soc History of Surgery: Yes (CHOLECYSTECTOMY) Anesthesia Reaction: No Hx Neurological Disorder: No Hx Respiratory Disorders: No Hx Cardiac Disorders: No Hx Psychiatric Problems: No Hx Miscellaneous Medical Probl: Yes (BIPOLAR) Hx Alcohol Use: No Hx Substance Use: No Hx Tobacco Use: No Smoking Status: Never smoker Physical Exam Vitals Vital Signs Date Time Temp Pulse Resp B/P Pulse Ox O2 Delivery O2 Flow Rate FiO2 04/18/17 17:59 82 18 115/58 97 Physical Exam Const: [] Alert, not ill-appearing. Head: Atraumatic Eyes: Normal Conjunctiva ENT: Normal External Ears, Nose and Mouth. Neck: Full range of motion..~ No meningismus. Resp: Clear to auscultation bilaterally Cardio: Regular rate and rhythm, no murmurs Abd: Soft, non tender, non distended. Normal bowel sounds Skin: No petechiae or rashes Back: No midline or flank tenderness Ext: No cyanosis, or edema Neur: Awake and alert Psych: Normal Mood and Affect Procedures/MDM Patient presents with itching in the bilateral thighs without evidence of a rash , signs of additional causative agent such as hepatobiliary disease, acute abdomen, anaphylaxis patient she'll be treated short course prednisone and Arlene and primary care follow-up. The patient was stable with no new complaints during the ER course. Clinically, there is no current evidence to suggest meningitis, sepsis, acute abdomen, pneumonia, acute coronary syndrome, pulmonary embolism, or any other emergent condition appearing to require further evaluation or hospitalization. The patient should certainly return for any new or worsening symptoms per the aftercare instructions. They should otherwise follow-up with her primary care doctor for reevaluation this week. Departure Diagnosis: Primary Impression: Rash Condition: Stable Patient Instructions: Dermatitis, Non-Specific [facility]errals: [facility] Usted se hair hecho un examen mdico de control que le indica que no est en nida condicin que requiera tratamiento urgente en el Departamento de Emergencia. Un estudio ms profundo y el tratamiento de denny condicin pueden esperar sin ningn riesgo hasta que usted sea atendida/o en el consultorio de denny mdico o nida cl jim. Es responsabilidad suya arreglar nida asher para el seguimiento del sandra. MANEJO DE CONDICIONES NO URGENTES EN EL FUTURO 1) Si usted tiene un mdico de atencin primaria: Usted debera llamar a denny mdico de atencin primaria antes de venir al departamento de emergencia. Despus de las horas de consultorio, denny doctor o denny asociado/a est disponible por telfono. El mdico o enfermero de diana en el servicio telefnico puede asesorarle por aaron medio para atender el problema, o sandra contrario se puede programar nida asher. 2) Si usted no tiene un mdico de atencin primaria: Llame al mdico o clnica de referencia que aparece abajo cain las horas de consultorio para hacer nida asher para que le vean. CLINICAS: [facility] [phone] [id number] [facility] [phone] [address] [facility] [phone] [address] [facility] [phone] [facility] [phone] [id number] [facility]. [phone] [address] Additional Instructions: Cheque otro vez con denny doctor primario en el proximo chris or regresa para mas o nueva simptomas. ANH ASHLEY MD Apr 18, 2017 19:09
== END 2017-04-18 19:35 | disposition home or self-care (01) ==
LOC: FTE 17:31
DX: R21 Rash and other nonspecific skin eruption (principal)
CPT/HCPCS: 99283

== ENCOUNTER 2018-09-13 19:17 | Emergency (ER) | END 2018-09-13 21:32 | disposition home or self-care (01) ==